=== PATIENT | male | born 1985 | race Caucasian/White ===

== ENCOUNTER 2019-04-19 19:29 | Emergency (ER) | payer OTHER ==
[~2019-04-19] VITALS: Ht 175.3 cm; Wt 85.0 kg
--- NOTE | 2019-04-19 19:37 | NUR ---
PT BIB [facility] FOR ACUTE ALCOHOL INTOXICATION. PER EMS, PT DRANK A 750 ML BOTTLE OF BENNY VODKA, AND HAS A PAST HISTORY OF ALCOHOLISM. PT ALSO REPORTS HX OF HTN, BUT IS NORMOTENSIVE UPON ARRIVAL TO [facility] ED. PT FSBS EN [address]. PT EDUCATED ON ER PROCESS AND VERBALIZES UNDERSTANDING. CALL LIGHT IS WITHIN REACH AT THIS TIME. AWAITING ERP FOR PT HISTORY AND ASSESSMENT.
[2019-04-19] MEDS ORDERED: LORazepam 1MG TABLET PO ONE (20:30)
--- NOTE | 2019-04-19 20:31 | NUR ---
PT ASLEEP IN [facility] AT THIS TIME;
--- NOTE | 2019-04-19 21:07 | NUR ---
PT REFUSING CT AT THIS TIME.
--- NOTE | 2019-04-19 21:08 | NUR ---
pt refused exam
--- NOTE | 2019-04-19 22:03 | NUR ---
PT ASLEEP IN [facility] AT THIS TIME;
[2019-04-19 23:39] VITALS: BP 142/88
--- NOTE | 2019-04-20 00:57 | NUR ---
TASK RN: PT A&OX4, SPEECH CLEAR, AND AMBULATORY WITHOUT ASSISTANCE. PT SEEN AMBULATING STEADILY OUT OF DEPARTMENT. PT IN APPROPRIATE CLOTHING FOR WEATHER.
== END 2019-04-20 01:00 | disposition home or self-care (01) ==
LOC: ED 19:56
DX: F10.220 Alcohol dependence with intoxication, uncomplicated (principal)
CPT/HCPCS: 99283